=== PATIENT | female | born 1965 | race Caucasian/White ===

== ENCOUNTER → 2018-03-09 17:09 | Outpatient (CLI) | payer OTHER, SELFPAY ==
[2018-03-09 19:15] LABS: Bacteria Urine None Seen; RBC Urine None Seen (0-5/HPF); WBC Urine None Seen (0-5/HPF)
[2018-03-09 19:19] LABS: Appearance Urine UA CLEAR; Bilirubin Urine UA NEGATIVE (NEGATIVE); Color Urine UA YELLOW; Glucose Urine UA NEGATIVE (Normal); Ketones Urine UA NEGATIVE (NEGATIVE); Leukocyte Esterase Urine UA NEGATIVE (NEGATIVE); Nitrite Urine UA Negative (Negative); Occult Blood Urine UA TRACE-LYSED (Negative); Protein Urine UA NEGATIVE (Negative); Urobilinogen Urine UA 0.2 E.U./dL (0.2)
[2018-03-09 19:27] LABS: Culture Indicated Urine Cult Not Indicated; Urine Comments Microscopic Normal
== END ==
PROVIDERS: Family Provider Family Medicine; PCP Family Medicine; Visit Provider Family Medicine
DX: N39.0 Urinary tract infection, site not specified (principal)
CPT/HCPCS: 81001

== ENCOUNTER → 2018-03-14 08:05 | Outpatient (CLI) | payer OTHER, SELFPAY ==
[2018-03-14 09:47] LABS: Add Manual Diff / Slide Review NO; Basophils Percent Auto 1.1 % (0-2); Eosinophils Percent Auto 0.9 % (2-4); Hematocrit 41.4 % (36-46); Lymphocytes Percent Auto 36.3 % (25-40); Mean Corpuscular HGB Conc 33.7 % (30-36); Mean Corpuscular Hemoglobin 30.6 PG (26-34); Mean Corpuscular Volume 90.8 fL (80-100); Monocytes Percent Auto 4.7 % (3-14); Neutrophils Absolute Auto 3300 /uL (3000-5900); Platelet Count 241 X10^3/uL (150-400); Red Blood Cell Count 4.56 X10^6/uL (4.0-5.2); Red Cell Distribution Width 12.1 % (11.6-14.8); White Blood Cell Count 5.9 X10^3/uL (4.5-11.0)
[2018-03-14 09:57] LABS: Alanine Aminotransferase 27 IU/L (9-52); Albumin 4.2 g/dL (3.5-5.0); Albumin Globulin Ratio 1.4 (1.0-2.8); Alkaline Phosphatase 31 U/L (38-126); Aspartate Aminotransferase 24 IU/L (14-36); BUN Creatinine Ratio 18.6 (6-22); Bilirubin Total 0.6 mg/dL (0.2-1.3); Blood Urea Nitrogen 13 mg/dL (7-17); Carbon Dioxide 31 mmol/L (22-32); Chloride 103 mmol/L (98-107); Cholesterol 230 mg/dL (140-199); Estimated Glomerular Filt Rate > 60.0 mL/min (>60); Globulin 3.1 g/dL (1.7-4.1); Glucose 90 mg/dL (70-100); HDL Cholesterol 73 mg/dL (40-60); HEMOLYSIS < 15 (0-50); LDL Cholesterol Calculated 145 mg/dL (<100); Potassium 4.5 mmol/L (3.4-5.1); Sodium 141 mmol/L (137-145); Total Protein 7.3 g/dL (6.3-8.2); Triglycerides 61 mg/dL (35-150)
[2018-03-14 10:09] LABS: Free T4, Direct Thyroxine 0.94 ng/dL (0.78-2.19)
[2018-03-14 10:23] LABS: Thyroid Stimulating Hormone 0.69 uIU/mL (0.47-4.68)
== END ==
PROVIDERS: Family Provider Family Medicine; PCP Family Medicine; Visit Provider Family Medicine
DX: R53.82 Chronic fatigue, unspecified (principal); E78.00 Pure hypercholesterolemia, unspecified
CPT/HCPCS: 36415; 80053; 80061; 84439; 84443; 85025

== ENCOUNTER 2019-10-14 10:29 | Emergency (ER) | payer OTHER, SELFPAY ==
[2019-10-14 10:47] VITALS: BMI 23.6
[2019-10-14 11:00] VITALS: BP 102/58; PULSE 63; RESP 15; TEMP 36.5; O2SAT 97
--- NOTE | 2019-10-14 11:01 | PC.NURSE ---
pt reports, dry coughing for 10 days, now with left chest dull pain when taking breathing. at rest pain free with no other associated sxs.
--- NOTE | 2019-10-14 11:02 | DI.RAD.S_ITS ---
PROCEDURE: XR CHEST 2V INDICATIONS: shortness of breath TECHNIQUE: 2 views of the chest were acquired. COMPARISON: None. FINDINGS: Surgical changes and devices: None. Lungs and pleura: Lungs are clear. No pleural effusions or pneumothorax. Mediastinum: Mediastinal contours are normal. Heart size is normal. Bones and chest wall: No suspicious bony abnormalities. Soft tissues appear unremarkable. IMPRESSION: No acute cardiopulmonary pathology. Dictated by: Ben Jacobo M.D. on 10/14/2019 at 11:40 Approved by: Ben Jacobo M.D. on 10/14/2019 at 12:00
[2019-10-14 11:08] LABS: Add Manual Diff / Slide Review NO; Basophils Absolute Auto 0 /uL (0-100); Basophils Percent Auto 0.7 % (0-2); Eosinophils Absolute Auto 100 /uL (0-450); Eosinophils Percent Auto 0.9 % (2-4); Hematocrit 39.4 % (36-46); Hemoglobin 13.3 g/dL (12.0-16.0); Lymphocytes Absolute Auto 1500 /uL (1100-4500); Lymphocytes Percent Auto 21.4 % (25-40); Mean Corpuscular HGB Conc 33.8 % (30-36); Mean Corpuscular Hemoglobin 30.9 PG (26-34); Mean Corpuscular Volume 91.3 fL (80-100); Monocytes Absolute Auto 300 /uL (0-900); Monocytes Percent Auto 4.8 % (3-14); Neutrophils Absolute Auto 5100 /uL (1500-7000); Neutrophils Percent Auto 72.2 % (50-75); Platelet Count 235 X10^3/uL (150-400); Red Blood Cell Count 4.32 X10^6/uL (4.0-5.2); Red Cell Distribution Width 12.5 % (11.6-14.8)
[2019-10-14 11:13] LABS: Alanine Aminotransferase 17 IU/L (<35); Albumin 4.3 g/dL (3.5-5.0); Albumin Globulin Ratio 1.4 (1.0-2.8); Alkaline Phosphatase 34 U/L (38-126); Aspartate Aminotransferase 24 IU/L (14-36); Bilirubin Total 0.6 mg/dL (0.2-1.3); Blood Urea Nitrogen 12 mg/dL (7-17); Calcium 9.1 mg/dL (8.4-10.2); Carbon Dioxide 31 mmol/L (22-32); Chloride 101 mmol/L (98-107); Estimated Glomerular Filt Rate > 60.0 mL/min (>60); Glucose 97 mg/dL (70-100); HEMOLYSIS < 15 (0-50); Potassium 4.6 mmol/L (3.4-5.1); Sodium 138 mmol/L (137-145); Total Protein 7.3 g/dL (6.3-8.2)
--- NOTE | 2019-10-14 11:42 | ED_ITS ---
HPI - Chest Pain <Liv Flores PA-C - Last Filed: 10/14/19 20:43> General Chief Complaint: Chest Pain Stated Complaint: dry cough 10 days 24 hours gotten worse chest hurt Time Seen by Provider: 10/14/19 10:52 Source: patient Mode of arrival: Ambulatory Limitations: no limitations History of Present Illness HPI narrative: This 51-year-old female comes to ED secondary to worsening chest pain and discomfort. States that she was unable to see primary care provider today and thought she should have this checked out. She states that she has had a dry cough for 10 days, cough is worse today. She has also had some central pain in her chest especially with trying to take deep breaths or coughing. She states she feels like her breathing is a little bit labored due to this and she has chest fullness and pressure which are new since yesterday. She states that aside from the dry cough, she has not felt ill with any cold or upper respiratory symptoms. She has not had wheeze. She has not had fever. 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 She denies any radiation of the pain, better when not coughing and breathing normally. She denies any new pain or swelling in her extremities. She denies any history of cardiac disease, blood clots, asthma. She denies any recent surgery or immobility. Related Data Home Medications Medication Instructions Recorded Confirmed alprazolam 0.25 mg PO BEDTIME 10/14/19 10/14/19 temazepam 30 mg PO BEDTIME 10/14/19 10/14/19 Previous Rx's Medication Instructions Recorded [estrogen/progesteron] 1 cap PO QDAY #90 05/20/17 albuterol sulfate 2 inhalation INHALATION Q4H PRN 10/14/19 #8.5 gram Allergies Allergy/AdvReac Type Severity Reaction Status Date / Time No Known Drug Allergies Allergy Verified 10/14/19 10:47 Review of Systems <Liv Flores PA-C - Last Filed: 10/14/19 20:43> Review of Systems ROS Unobtainable: All systems reviewed & are unremarkable except as noted in HPI and below Patient History <Liv Flores PA-C - Last Filed: 10/14/19 20:43> Medical History Anxiety (Chronic 09/25/15) Anxiety (Chronic 1999) Depression (Chronic Unknown) Endometriosis (Resolved Unknown) Fatigue (Chronic) Fibroids (Resolved Unknown) H/O tinnitus (Chronic Unknown) Herpes (Chronic 2000) History of subacute thyroiditis (Chronic 05/27/16) 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 HEENT: Bri[place], EOMI, normal oropharynx NECK/THYROID: Neck supple, no masses LUNGS: Clear to auscultation bilaterally. CHEST: Tender over the sternum and sternal borders, no tenderness over the ribs HEART: Regular rate and rhythm without murmur, normal S1, S2, no S3 or S4. ABDOMEN: Soft, NT, ND, + BS x 4 quadrants EXTREMITIES: No edema. No calf tenderness NEUROLOGIC: Alert and oriented, normal speech and coordination. DERMATOLOGIC: No exanthem Initial Vital Signs Initial Vital Signs: Vital Signs Temperature 97.7 F 10/14/19 11:00 Pulse Rate 63 10/14/19 11:00 Respiratory Rate 15 10/14/19 11:00 Blood Pressure 102/58 L 10/14/19 11:00 Pulse Oximetry 97 10/14/19 11:00 <Doretha Posadas MD - Last Filed: 10/18/19 12:18> Initial Vital Signs Initial Vital Signs: Vital Signs Temperature 97.7 F 10/14/19 11:00 Pulse Rate 63 10/14/19 11:00 Respiratory Rate 15 10/14/19 11:00 Blood Pressure 102/58 L 10/14/19 11:00 Pulse Oximetry 97 10/14/19 11:00 Scores <Liv Flores PA-C - Last Filed: 10/14/19 20:43> HEART Score Heart Score history: Slightly Suspicious Heart Score EKG: Normal Heart Score Age: 45-64 years old Heart Score risk factors: No known risk factors Heart Score troponin: < or = to normal limit Heart Score Total: 1 Wells' Criteria for PE Heart rate > 100: No Immobilization at least 3 days or surg in previous 4 weeks: No History of PE or DVT: No Hemoptysis: No Malignancy w/Treatment within 6 months or palliative: No Course <Liv Flores PA-C - Last Filed: 10/14/19 20:43> Course Additional Information: No acute findings on workup. Patient does have some pure hypercholesterolemia, but no specific risk factors aside from age, no history of immobilization or risk factors for clots. She is feeling improved following nebulizer treatment, suspect reactive airways secondary to recent bronchitis. She agreed to return if any acutely worsening symptoms again, otherwise will follow-up with PCP. Orders Ordered: Discontinued Medications Albuterol (Ventolin) 2.5 mg INH NOW ONE Stop: 10/14/19 11:57 Last Admin: 10/14/19 12:15 Dose: 2.5 mg Documented by: TEOFILO Vital Signs Vital signs: Vital Signs - 8 hr 10/14/19 13:00 10/14/19 13:37 Pulse Rate 62 63 Respiratory Rate 17 17 Blood Pressure 116/64 Pulse Oximetry 98 <Doretha Posadas MD - Last Filed: 10/18/19 12:18> Orders Ordered: Discontinued Medications Albuterol (Ventolin) 2.5 mg INH NOW ONE Stop: 10/14/19 11:57 Last Admin: 10/14/19 12:15 Dose: 2.5 mg Documented by: TEOFILO Vital Signs Vital signs: Vital Signs - 8 hr 10/14/19 13:00 10/14/19 13:37 Pulse Rate 62 63 Respiratory Rate 17 17 Blood Pressure 116/64 Pulse Oximetry 98 MDM - Chest Pain <Liv Flores PA-C - Last Filed: 10/14/19 20:43> Lab Data Attestation: I reviewed the patient's lab results. Result diagrams: 10/14/19 10:50 10/14/19 10:50 Labs: Lab Results 10/14/19 10/14/19 10/14/19 Range/Units 10:50 10:50 10:50 WBC 7.0 (4.5-11.0) X10^3/uL RBC 4.32 (4.0-5.2) X10^6/uL Hgb 13.3 (12.0-16.0) g/dL Hct 39.4 (36-46) % MCV 91.3 (80-100) fL MCH 30.9 (26-34) PG MCHC 33.8 (30-36) % RDW 12.5 (11.6-14.8) % Plt Count 235 (150-400) X10^3/uL Neut % (Auto) 72.2 (50-75) % Lymph % (Auto) 21.4 L (25-40) % [place] % (Auto) 4.8 (3-14) % Eos % (Auto) 0.9 L (2-4) % Baso % (Auto) 0.7 (0-2) % Neut # (Auto) 5100 (3368-7842) /uL Lymph # (Auto) 1500 (0623-1607) /uL [place] # (Auto) 300 (0-900) /uL Eos # (Auto) 100 (0-450) /uL Baso # (Auto) 0 (0-100) /uL D-Dimer (<230) ng/mL Sodium 138 (137-145) mmol/L Potassium 4.6 (3.4-5.1) mmol/L Chloride 101 (98-107) mmol/L Carbon Dioxide 31 (22-32) mmol/L BUN 12 (7-17) mg/dL Creatinine 0.60 (0.52-1.04) mg/dL Estimated GFR > 60.0 (>60) mL/min BUN/Creatinine Ratio 20.0 (6-22) Glucose 97 (70-100) mg/dL Calcium 9.1 (8.4-10.2) mg/dL Total Bilirubin 0.6 (0.2-1.3) mg/dL AST 24 (14-36) IU/L ALT 17 (<35) IU/L Alkaline Phosphatase 34 L (38-126) U/L Total Creatine Kinase 51 (30-135) U/L CK-MB (CK-2) TNP CK-MB (CK-2) Rel Index TNP Troponin I < 0.012 (0.01-0.034) ng/mL B-Natriuretic Peptide (<100) Total Protein 7.3 (6.3-8.2) g/dL Albumin 4.3 (3.5-5.0) g/dL Globulin 3.0 (1.7-4.1) g/dL Albumin/Globulin Ratio 1.4 (1.0-2.8) 10/14/19 10/14/19 Range/Units 10:50 10:50 WBC (4.5-11.0) X10^3/uL RBC (4.0-5.2) X10^6/uL Hgb (12.0-16.0) g/dL Hct (36-46) % MCV (80-100) fL MCH (26-34) PG MCHC (30-36) % RDW (11.6-14.8) % Plt Count (150-400) X10^3/uL Neut % (Auto) (50-75) % Lymph % (Auto) (25-40) % [place] % (Auto) (3-14) % Eos % (Auto) (2-4) % Baso % (Auto) (0-2) % Neut # (Auto) (4099-7421) /uL Lymph # (Auto) (8155-0953) /uL [place] # (Auto) (0-900) /uL Eos # (Auto) (0-450) /uL Baso # (Auto) (0-100) /uL D-Dimer < 200 (<230) ng/mL Sodium (137-145) mmol/L Potassium (3.4-5.1) mmol/L Chloride (98-107) mmol/L Carbon Dioxide (22-32) mmol/L BUN (7-17) mg/dL Creatinine (0.52-1.04) mg/dL Estimated GFR (>60) mL/min BUN/Creatinine Ratio (6-22) Glucose (70-100) mg/dL Calcium (8.4-10.2) mg/dL Total Bilirubin (0.2-1.3) mg/dL AST (14-36) IU/L ALT (<35) IU/L Alkaline Phosphatase (38-126) U/L Total Creatine Kinase (30-135) U/L CK-MB (CK-2) CK-MB (CK-2) Rel Index Troponin I (0.01-0.034) ng/mL B-Natriuretic Peptide < 100 (<100) Total Protein (6.3-8.2) g/dL Albumin (3.5-5.0) g/dL Globulin (1.7-4.1) g/dL Albumin/Globulin Ratio (1.0-2.8) Imaging Data Chest x-ray: Radiologist's Impression: [address] [address] XRay Report Signed Patient: Darleen Erickson [facility]#: [id number] : 1965Acct:[id number] Age/Sex: 54 / FDate of Service: 10/14/19 Loc: ED Accession Number: [id number] Procedure: XR chest 2V Ordering Provider: Doretha Posadas MD PROCEDURE: XR CHEST 2V INDICATIONS: shortness of breath TECHNIQUE: 2 views of the chest were acquired. COMPARISON: None. FINDINGS: Surgical changes and devices: None. Lungs and pleura: Lungs are clear. No pleural effusions or pneumothorax. Mediastinum: Mediastinal contours are normal. Heart size is normal. Bones and chest wall: No suspicious bony abnormalities. Soft tissues appear unremarkable. IMPRESSION: No acute cardiopulmonary pathology. Dictated by: Ben Jacobo M.D. on 10/14/2019 at 11:40 Approved by: Ben Jacobo M.D. on 10/14/2019 at 12:00 ECG Data Attestation: I personally reviewed and interpreted this ECG as follows: (Normal sinus rhythm, rate 60, normal axis) <Doretha Posadas MD - Last Filed: 10/18/19 12:18> Lab Data Labs: Lab Results 10/14/19 10/14/19 10/14/19 Range/Units 10:50 10:50 10:50 WBC 7.0 (4.5-11.0) X10^3/uL RBC 4.32 (4.0-5.2) X10^6/uL Hgb 13.3 (12.0-16.0) g/dL Hct 39.4 (36-46) % MCV 91.3 (80-100) fL MCH 30.9 (26-34) PG MCHC 33.8 (30-36) % RDW 12.5 (11.6-14.8) % Plt Count 235 (150-400) X10^3/uL Neut % (Auto) 72.2 (50-75) % Lymph % (Auto) 21.4 L (25-40) % [place] % (Auto) 4.8 (3-14) % Eos % (Auto) 0.9 L (2-4) % Baso % (Auto) 0.7 (0-2) % Neut # (Auto) 5100 (0894-8540) /uL Lymph # (Auto) 1500 (3749-6180) /uL [place] # (Auto) 300 (0-900) /uL Eos # (Auto) 100 (0-450) /uL Baso # (Auto) 0 (0-100) /uL D-Dimer (<230) ng/mL Sodium 138 (137-145) mmol/L Potassium 4.6 (3.4-5.1) mmol/L Chloride 101 (98-107) mmol/L Carbon Dioxide 31 (22-32) mmol/L BUN 12 (7-17) mg/dL Creatinine 0.60 (0.52-1.04) mg/dL Estimated GFR > 60.0 (>60) mL/min BUN/Creatinine Ratio 20.0 (6-22) Glucose 97 (70-100) mg/dL Calcium 9.1 (8.4-10.2) mg/dL Total Bilirubin 0.6 (0.2-1.3) mg/dL AST 24 (14-36) IU/L ALT 17 (<35) IU/L Alkaline Phosphatase 34 L (38-126) U/L Total Creatine Kinase 51 (30-135) U/L CK-MB (CK-2) TNP CK-MB (CK-2) Rel Index TNP Troponin I < 0.012 (0.01-0.034) ng/mL B-Natriuretic Peptide (<100) Total Protein 7.3 (6.3-8.2) g/dL Albumin 4.3 (3.5-5.0) g/dL Globulin 3.0 (1.7-4.1) g/dL Albumin/Globulin Ratio 1.4 (1.0-2.8) 10/14/19 10/14/19 Range/Units 10:50 10:50 WBC (4.5-11.0) X10^3/uL RBC (4.0-5.2) X10^6/uL Hgb (12.0-16.0) g/dL Hct (36-46) % MCV (80-100) fL MCH (26-34) PG MCHC (30-36) % RDW (11.6-14.8) % Plt Count (150-400) X10^3/uL Neut % (Auto) (50-75) % Lymph % (Auto) (25-40) % [place] % (Auto) (3-14) % Eos % (Auto) (2-4) % Baso % (Auto) (0-2) % Neut # (Auto) (2624-8429) /uL Lymph # (Auto) (9090-9657) /uL [place] # (Auto) (0-900) /uL Eos # (Auto) (0-450) /uL Baso # (Auto) (0-100) /uL D-Dimer < 200 (<230) ng/mL Sodium (137-145) mmol/L Potassium (3.4-5.1) mmol/L Chloride (98-107) mmol/L Carbon Dioxide (22-32) mmol/L BUN (7-17) mg/dL Creatinine (0.52-1.04) mg/dL Estimated GFR (>60) mL/min BUN/Creatinine Ratio (6-22) Glucose (70-100) mg/dL Calcium (8.4-10.2) mg/dL Total Bilirubin (0.2-1.3) mg/dL AST (14-36) IU/L ALT (<35) IU/L Alkaline Phosphatase (38-126) U/L Total Creatine Kinase (30-135) U/L CK-MB (CK-2) CK-MB (CK-2) Rel Index Troponin I (0.01-0.034) ng/mL B-Natriuretic Peptide < 100 (<100) Total Protein (6.3-8.2) g/dL Albumin (3.5-5.0) g/dL Globulin (1.7-4.1) g/dL Albumin/Globulin Ratio (1.0-2.8) Discharge Plan Departure Patient Disposition: Home Clinical Impression: Acute costochondritis, Bronchitis Mild reactive airways disease Qualifiers: Asthma persistence: intermittent Asthma complication type: with acute exacerbation Qualified Code(s): J45.21 - Mild intermittent asthma with (acute) exacerbation Discharge Date/Time: 10/14/19 13:37 Instructions: DI for Acute Bronchitis, DI for Costochondritis, DI for Reactive Airway Disease-Adult Activity Restrictions/Additional Instructions: There was no acute problem found on your chest x-ray, EKG, or the lab work that we did here today. I suspect that your cough is related to a viral chest cold, bronchitis. This will likely get better on its own over the next week or so, however it seems like you may have some reactive airways, airway inflammation related to the virus that may be exacerbating your cough and tight chest, especially since the breathing treatment that we gave you helped. Please use the prescribed inhaler for that as needed and you can use [id number] cough syrup as you wish. The prescription was sent to [facility]. Please start taking Aleve, 2 tablets every 12 hours, which is prescription equivalent, to help with pain and inflammation. I think that you have strained the area where your ribs attach to the breast bone due to coughing so much. As we talked about, you should return if you have any acutely worsening symptoms prior to seeing her primary care provider. Please see your PCP in a few days for recheck and further treatment and testing if you are not better. Thank you very much for your service (and for your patience in our busy Emergency Department today) Prescriptions: New albuterol sulfate 90 mcg/actuation HFA aerosol inhaler 2 inhalation INHALATION Q4H PRN (Reason: cough, tight chest) Qty: 8.5 RF: 0 No Action [estrogen/progesteron] 1 cap PO QDAY Qty: 90 RF: 3 alprazolam 0.25 mg tablet 0.25 mg PO BEDTIME RF: 0 temazepam 30 MG capsule 30 mg PO BEDTIME RF: 0 Referrals: [facility] [Outside]
[2019-10-14 12:07] LABS: D Dimer < 200 ng/mL (<230)
[2019-10-14 12:09] LABS: Creatine Kinase 51 U/L (30-135)
[2019-10-14 12:15] VITALS: PULSE 89; RESP 14; O2SAT 100
[2019-10-14] MEDS: ALBUTEROL 2.5 MG/3 ML NEB (ADULT) INH (12:15)
[2019-10-14 12:17] LABS: B Type Natriuretic Peptide < 100 (<100)
[2019-10-14 12:21] LABS: Troponin I < 0.012 ng/mL (0.01-0.034)
[2019-10-14 12:36] VITALS: PULSE 62; RESP 17; O2SAT 100
[2019-10-14 13:00] VITALS: PULSE 62; RESP 17
[2019-10-14 13:37] VITALS: BP 116/64; PULSE 63; RESP 17; O2SAT 98
== END 2019-10-14 13:37 | disposition home or self-care (01) ==
PROVIDERS: Emergency Medicine; Emergency Provider Internal Medicine; PCP Family Medicine
DX: M94.0 Chondrocostal junction syndrome [Tietze] (principal); J40 Bronchitis, not specified as acute or chronic; J45.21 Mild intermittent asthma with (acute) exacerbation
CPT/HCPCS: 36415; 71046; 80053; 82550; 83880; 84484; 85025; 85379; 93005; 94640; 99284; 99285; J7613

== ENCOUNTER → 2021-06-20 17:03 | Outpatient (CLI) | payer OTHER, SELFPAY ==
--- NOTE | 2021-06-20 17:06 | DI.US.S_ITS ---
PROCEDURE: US THYROID INDICATIONS: ROUTINE SCREENING; THYROID NODULE TECHNIQUE: Real-time scanning was performed of the thyroid gland, with image documentation. COMPARISON: None. FINDINGS: Right: Thyroid lobe measures 4.4 x 1.3 x 1.4 cm, and is homogeneous in echotexture. Left: Thyroid lobe measures 4 x 1.2 x 1.4 cm, and is homogenous in echotexture. Isthmus: 2.4 mm thick. Nodule number: 1 Location: Mid pole of left thyroid lobe Size: 1.2 x 0.7 x 0.8 cm. Composition: Solid Echogenicity: Hypoechoic Shape: Wider than tall Margins: Smooth Echogenic foci: None Total points: 4 ACR TI-RADS category: 4, moderately suspicious. Nodule number: 2 Location: Lower pole of left thyroid lobe Size: 0.2 x 0.2 x 0.3 cm. Composition: Solid Echogenicity: Hypoechoic Shape: Wider than tall Margins: Smooth Echogenic foci: None Total points: 4 ACR TI-RADS category: 4, moderately suspicious. Nodule number: 3 Location: Lower pole right thyroid lobe Size: 0.6 x 0.3 x 0.6 cm. Composition: Solid Echogenicity: Isoechoic Shape: Wider than tall Margins: Smooth Echogenic foci: None Total points: 3 ACR TI-RADS category: 3, mildly suspicious. IMPRESSION: Small mild to moderately suspicious bilateral thyroid nodules as described above. Sonographic follow-up based on following recommendation is suggested. ACR TI-RADS definitions and recommendations: TI-RADS 1 (benign): 0 points. FNA not needed. TI-RADS 2 (not suspicious): 2 points. FNA not needed. TI-RADS 3 (mildly suspicious): 3 points. * FNA if 2.5 cm or larger, follow up if 1.5 cm or larger (at 1, 3, and 5 years). TI-RADS 4 (moderately suspicious): 4-6 points. * FNA if 1.5 cm or larger, follow up if 1 cm or larger (at 1, 2, 3, and 5 years). TI-RADS 5 (highly suspicious): 7 points or more. * FNA if 1 cm or larger, follow up if 0.5 cm or larger (every year for 5 years). Dictated by: Ben Jacobo M.D. on 06/20/2021 at 23:53 Approved by: Ben Jacobo M.D. on 06/20/2021 at 23:56
--- NOTE | 2021-06-20 17:06 | DI.MG.S_ITS ---
BILATERAL DIGITAL SCREENING MAMMOGRAM 3D/2D WITH CAD WITH AUGMENTATION: 06/20/2021 CLINICAL: Routine screening. Comparison is made to exams dated: 04/13/2020 mammogram, 03/29/2019 mammogram, and 02/13/2018 mammogram - [facility]. The tissue of both breasts is heterogeneously dense. This may lower the sensitivity of mammography. Current study was also evaluated with a Computer Aided Detection (CAD) system. Bilateral breast implants are stable. There are benign calcifications in the left breast. No significant masses, calcifications, or other findings are seen in either breast. There has been no significant interval change. IMPRESSION: BENIGN There is no mammographic evidence of malignancy. A 1 year screening mammogram is recommended. This exam was interpreted at Station ID: [id number]. NOTE: For mammograms, a report in lay terms will be sent to the patient. Approximately 15% of breast malignancies will not be visualized mammographically. In the management of a palpable breast mass, a negative mammogram must not discourage biopsy of a clinically suspicious lesion. Electronically Signed By: Sandeep chavez/murray:06/21/2021 12:01:01 letter sent: Normal Exam ACR BI-RADS Category 2: Benign Finding(s) [id number]
== END ==
PROVIDERS: PCP Physician Assistant; Referring Provider Physician Assistant; Visit Provider Physician Assistant
DX: Z12.31 Encounter for screening mammogram for malignant neoplasm of breast (principal); E04.2 Nontoxic multinodular goiter
CPT/HCPCS: 76536; 77063; 77067

== ENCOUNTER → 2021-07-25 12:06 | Outpatient (CLI) | payer BC, SELFPAY | PROVIDERS: PCP Physician Assistant; Visit Provider Nurse Practitioner Family | DX: R30.9 Painful micturition, unspecified (principal) | CPT/HCPCS: 87077; 87086; 87186 ==

== ENCOUNTER → 2021-10-04 15:19 | Outpatient (CLI) | payer BC, SELFPAY ==
[2021-10-04 16:39] LABS: Free T4, Direct Thyroxine 0.99 ng/dL (0.78-2.19)
[2021-10-04 16:53] LABS: Thyroid Stimulating Hormone 0.128 uIU/mL (0.47-4.68)
[2021-10-05 06:17] LABS: Triiodothyronine T3 Total 106 ng/dL (71-180)
== END ==
PROVIDERS: PCP Physician Assistant; Referring Provider Physician Assistant; Visit Provider Physician Assistant
DX: E03.9 Hypothyroidism, unspecified (principal)
CPT/HCPCS: 36415; 84439; 84443; 84480

== ENCOUNTER → 2021-11-16 12:06 | Outpatient (CLI) | payer BC, SELFPAY ==
[2021-11-16 13:56] LABS: Free T4, Direct Thyroxine 1.24 ng/dL (0.78-2.19)
[2021-11-16 14:10] LABS: Thyroid Stimulating Hormone 0.344 uIU/mL (0.47-4.68)
[2021-11-17 08:35] LABS: Triiodothyronine T3 Total 104 ng/dL (71-180)
== END ==
PROVIDERS: PCP Physician Assistant; Referring Provider Physician Assistant; Visit Provider Physician Assistant
DX: E03.9 Hypothyroidism, unspecified (principal)
CPT/HCPCS: 36415; 84439; 84443; 84480

== ENCOUNTER → 2021-12-12 14:04 | Outpatient (CLI) | payer BC, SELFPAY ==
[2021-12-12 16:56] LABS: TSH w/ Reflex to FT4 0.19 uIU/mL (0.47-4.68)
[2021-12-12 17:24] LABS: Free T4, Direct Thyroxine 1.15 ng/dL (0.78-2.19)
== END ==
PROVIDERS: PCP Physician Assistant; Referring Provider Physician Assistant; Visit Provider Physician Assistant
DX: E03.9 Hypothyroidism, unspecified (principal)
CPT/HCPCS: 36415; 84439; 84443

== ENCOUNTER → 2022-01-03 11:43 | Outpatient (CLI) | payer BC, SELFPAY ==
[2022-01-03 12:30] LABS: COVID19 -Nasal RAPID Negative (Negative)
== END ==
PROVIDERS: PCP Physician Assistant; Visit Provider Physician Assistant
DX: Z20.822 Contact with and (suspected) exposure to COVID-19 (principal)
CPT/HCPCS: 87635

== ENCOUNTER → 2022-05-22 12:38 | Outpatient (CLI) | payer BC, SELFPAY ==
[2022-05-22 14:39] LABS: Free T4, Direct Thyroxine 1.12 ng/dL (0.78-2.19)
[2022-05-22 14:52] LABS: Thyroid Stimulating Hormone 0.514 uIU/mL (0.47-4.68)
== END ==
PROVIDERS: PCP Internal Medicine; Referring Provider Student in an Organized Health Care Education/Training Program; Visit Provider Student in an Organized Health Care Education/Training Program
DX: E03.9 Hypothyroidism, unspecified (principal)
CPT/HCPCS: 36415; 84439; 84443

== ENCOUNTER → 2022-06-24 11:25 | Outpatient (CLI) | payer BC, SELFPAY ==
[2022-06-24 13:47] LABS: Free T4, Direct Thyroxine 1.14 ng/dL (0.78-2.19)
[2022-06-24 14:01] LABS: Thyroid Stimulating Hormone 0.551 uIU/mL (0.47-4.68)
== END ==
PROVIDERS: PCP Internal Medicine; Referring Provider Student in an Organized Health Care Education/Training Program; Visit Provider Student in an Organized Health Care Education/Training Program
DX: E03.9 Hypothyroidism, unspecified (principal)
CPT/HCPCS: 36415; 84439; 84443

== ENCOUNTER → 2022-06-26 15:24 | Outpatient (CLI) | payer BC, SELFPAY ==
--- NOTE | 2022-06-26 15:25 | DI.MG.S_ITS ---
BILATERAL DIGITAL SCREENING MAMMOGRAM 3D/2D WITH CAD WITH AUGMENTATION: 06/26/2022 CLINICAL: Routine screening. Comparison is made to exams dated: 06/20/2021 mammogram - [facility], 04/13/2020 mammogram, and 03/29/2019 mammogram - [facility]. Both breasts are heterogeneously dense, which may obscure small masses (category c / 51-75% glandular tissue). Current study was also evaluated with a Computer Aided Detection (CAD) system. Bilateral breast implants are stable. There are benign calcifications in the left breast. No significant masses, calcifications, or other findings are seen in either breast. There has been no significant interval change. IMPRESSION: BENIGN There is no mammographic evidence of malignancy. A 1 year screening mammogram is recommended. Based on the Tyrer Cuzick model (a risk assessment model) the patient's lifetime risk is 11.4% and her 10 year risk is 4.0%. According to the ACR, ACS, and NCCN guidelines, an annual breast MRI exam along with mammogram is recommended if the patient's lifetime risk is 20% or greater. This exam was interpreted at Station ID: [id number]. NOTE: For mammograms, a report in lay terms will be sent to the patient. Approximately 15% of breast malignancies will not be visualized mammographically. In the management of a palpable breast mass, a negative mammogram must not discourage biopsy of a clinically suspicious lesion. Electronically Signed By: Salty garcia/murray:06/27/2022 08:41:42 letter sent: Normal Exam ACR BI-RADS Category 2: Benign Finding(s) 3342F
== END ==
PROVIDERS: PCP Internal Medicine; Referring Provider Internal Medicine; Visit Provider Internal Medicine
DX: Z12.31 Encounter for screening mammogram for malignant neoplasm of breast (principal)
CPT/HCPCS: 77063; 77067

== ENCOUNTER → 2022-10-03 14:23 | Outpatient (CLI) | payer BC, SELFPAY ==
--- NOTE | 2022-10-03 14:26 | DI.RAD.S_ITS ---
PROCEDURE: XR HIP W PEL IF DONE CHRIS MIN 4V INDICATIONS: HIP PAIN TECHNIQUE: AP pelvis with lateral view(s) of the both hip(s). COMPARISON: None. FINDINGS: Bones: No fractures or dislocations. No a vascular necrosis of the femoral heads. Mild degenerative change at both hips which is symmetric. Pelvic ring appears intact. No suspicious bony lesions. Soft tissues: The visualized bowel gas pattern is normal. No suspicious soft tissue calcifications. IMPRESSION: Mild bilateral hip DJD. Dictated by: Tom Strickland M.D. on 10/03/2022 at 16:12 Approved by: Tom Strickland M.D. on 10/03/2022 at 16:13
== END ==
PROVIDERS: PCP Internal Medicine; Referring Provider Physician Assistant; Visit Provider Physician Assistant
DX: M25.551 Pain in right hip (principal); M25.552 Pain in left hip; M16.0 Bilateral primary osteoarthritis of hip
CPT/HCPCS: 73522

== ENCOUNTER → 2022-11-21 07:57 | Outpatient (CLI) | payer BC, SELFPAY ==
[2022-11-21 10:44] LABS: Free T3, Triiodothyronine Free 3.93 pg/mL (2.77-5.27); Free T4, Direct Thyroxine 0.94 ng/dL (0.78-2.19)
[2022-11-21 10:59] LABS: Thyroid Stimulating Hormone 1.17 uIU/mL (0.47-4.68)
[2022-11-22 07:10] LABS: Thyroid Peroxidase Antibodies <9 IU/mL (0-34)
[2022-11-23 14:51] LABS: Anti Thyroglobulin Antibody <1.0 IU/mL (0.0-0.9)
[2022-12-01 19:37] LABS: Thyroglobulin Level 16 ng/mL (.)
== END ==
PROVIDERS: PCP Internal Medicine; Referring Provider Naturopath; Visit Provider Naturopath
DX: R94.6 Abnormal results of thyroid function studies (principal)
CPT/HCPCS: 36415; 84432; 84439; 84443; 84481; 86376; 86800

== ENCOUNTER → 2022-12-31 07:32 | Outpatient (CLI) | payer BC, SELFPAY | PROVIDERS: PCP Internal Medicine; Visit Provider Physician Assistant | DX: N39.0 Urinary tract infection, site not specified (principal) | CPT/HCPCS: 87077; 87086; 87186 ==

== ENCOUNTER → 2023-01-22 11:22 | Outpatient (CLI) | payer BC, SELFPAY ==
[2023-01-22 11:53] LABS: Add Manual Diff / Slide Review NO; Basophils Absolute Auto 100 /uL (0-100); Basophils Percent Auto 1.2 % (0-2); Eosinophils Absolute Auto 100 /uL (0-450); Hemoglobin 13.8 g/dL (12.0-16.0); Lymphocytes Absolute Auto 2500 /uL (1100-4500); Lymphocytes Percent Auto 41.3 % (25-40); Mean Corpuscular HGB Conc 33.6 % (30-36); Mean Corpuscular Hemoglobin 30.5 PG (26-34); Mean Corpuscular Volume 90.9 fL (80-100); Monocytes Absolute Auto 300 /uL (0-900); Monocytes Percent Auto 4.6 % (3-14); Neutrophils Absolute Auto 3100 /uL (1500-7000); Neutrophils Percent Auto 51.9 % (50-75); Platelet Count 254 X10^3/uL (150-400); Red Blood Cell Count 4.52 X10^6/uL (4.0-5.2); Red Cell Distribution Width 12.6 % (11.6-14.8); White Blood Cell Count 5.9 X10^3/uL (4.5-11.0)
[2023-01-22 13:28] LABS: Ferritin 20 ng/mL (11-264)
== END ==
PROVIDERS: PCP Internal Medicine; Referring Provider Naturopath; Visit Provider Naturopath
DX: D50.9 Iron deficiency anemia, unspecified (principal); R53.83 Other fatigue
CPT/HCPCS: 36415; 82728; 84443; 85025

== ENCOUNTER → 2023-02-25 11:11 | Outpatient (CLI) | payer BC, SELFPAY ==
--- NOTE | 2023-02-25 11:12 | DI.CT.S_ITS ---
PROCEDURE: CT ABDOMEN PELVIS WO/W CON INDICATIONS: Gross hematuria/secondhand smoke exposure TECHNIQUE: Optional 5 mm thick noncontrast images acquired from the diaphragm to the symphysis pubis. After the administration of intravenous contrast, 5 mm thick images acquired from the diaphragm to the symphysis pubis after a 10-minute delay. 2 mm thick coronal and sagittal reformats were then performed of the kidneys and ureters. For radiation dose reduction, the following was used: automated exposure control, adjustment of mA and/or kV according to patient size. COMPARISON: None. FINDINGS: Image quality: Excellent. Lung bases: Lung bases are clear. Heart size is normal. Urinary system: Both kidneys are normal in size, without hydronephrosis or nephrolithiasis on pre-contrast images. No perinephric fat stranding. There is normal bilateral renal enhancement. Renal calyces appear normal in morphology when filled with contrast. Opacified portions of both ureters demonstrate normal caliber. Bladder wall thickness is normal. No calcified bladder stones. Other solid organs: Liver is normal in size and enhancement. Gallbladder is unremarkable without calcified gallstones . Biliary system is non dilated. Pancreas enhances normally. Spleen is normal in size and enhancement. No adrenal nodules. Peritoneum and bowel: Bowel loops demonstrate normal wall thickness and caliber. No free fluid or air. Nodes and vessels: No retroperitoneal or mesenteric adenopathy by size criteria. Aorta and inferior vena cava are normal in size. Abdominal wall: No ventral hernias. Pelvis: No pathologic free pelvic fluid. No inguinal hernias or adenopathy. Bones: No suspicious bony lesions. No vertebral body compression fractures. IMPRESSION: 1. No renal stones, ureteral stones, hydronephrosis, or findings suspicious for malignancy. 2. No evidence of acute abdominal process. Dictated by: Kei Peters M.D. on 02/25/2023 at 17:17 Approved by: Kei Peters M.D. on 02/25/2023 at 17:26
[2023-02-25 13:44] LABS: Appearance Urine UA CLEAR; Bilirubin Urine UA NEGATIVE (NEGATIVE); Color Urine UA YELLOW; Glucose Urine UA NEGATIVE (Negative); Ketones Urine UA NEGATIVE (NEGATIVE); Leukocyte Esterase Urine UA NEGATIVE (NEGATIVE); Nitrite Urine UA NEGATIVE (Negative); Occult Blood Urine UA TRACE-INTACT (Negative); Protein Urine UA NEGATIVE (Negative); Specific Gravity Urine UA <=1.005 (1.000-1.035); Urobilinogen Urine UA 0.2 E.U./dL (0.2)
[2023-02-25 13:55] LABS: Bacteria Urine None Seen; Culture Indicated Urine Cult Not Indicated; RBC Urine None Seen (0-5/HPF); Squamous Epithelial Cell Urine 0-1 /HPF (0-5/HPF); WBC Urine None Seen (0-5/HPF)
== END ==
PROVIDERS: PCP Internal Medicine; Referring Provider Urology; Visit Provider Urology
DX: R31.0 Gross hematuria (principal); Z77.22 Contact with and (suspected) exposure to environmental tobacco smoke (acute) (chronic); N39.0 Urinary tract infection, site not specified; R39.14 Feeling of incomplete bladder emptying; R39.15 Urgency of urination
CPT/HCPCS: 36415; 74178; 81001; Q9967

== ENCOUNTER → 2023-03-24 10:39 | Outpatient (CLI) | payer BC, SELFPAY | PROVIDERS: PCP Internal Medicine; Visit Provider Nurse Practitioner Family | DX: N39.0 Urinary tract infection, site not specified (principal) | CPT/HCPCS: 87086 ==

== ENCOUNTER → 2023-07-23 14:01 | Outpatient (CLI) | payer OTHER, SELFPAY ==
--- NOTE | 2023-07-23 | DI.MG.S_ITS ---
BILATERAL DIGITAL SCREENING MAMMOGRAM 3D/2D WITH CAD WITH AUGMENTATION: 07/23/2023 CLINICAL: Routine screening. Comparison is made to exams dated: 06/26/2022 mammogram, 06/20/2021 mammogram - [facility], and 04/13/2020 mammogram - [facility]. Both breasts are heterogeneously dense, which may obscure small masses (category c / 51-75% glandular tissue). Current study was also evaluated with a Computer Aided Detection (CAD) system. Bilateral breast implants are stable. There are benign calcifications in the left breast. No significant masses, calcifications, or other findings are seen in either breast. There has been no significant interval change. IMPRESSION: BENIGN There is no mammographic evidence of malignancy. A 1 year screening mammogram is recommended. Based on the Tyrer Cuzick model (a risk assessment model) the patient's lifetime risk is 11.2% and her 10 year risk is 4.1%. According to the ACR, ACS, and NCCN guidelines, an annual breast MRI exam along with mammogram is recommended if the patient's lifetime risk is 20% or greater. This exam was interpreted at Station ID: [id number]. NOTE: For mammograms, a report in lay terms will be sent to the patient. Approximately 15% of breast malignancies will not be visualized mammographically. In the management of a palpable breast mass, a negative mammogram must not discourage biopsy of a clinically suspicious lesion. Electronically Signed By: Sandeep chavez/murray:07/23/2023 17:58:35 letter sent: Normal Exam ACR BI-RADS Category 2: Benign Finding(s) [id number]
== END ==
PROVIDERS: PCP Internal Medicine; Referring Provider Physician Assistant; Visit Provider Physician Assistant
DX: Z12.31 Encounter for screening mammogram for malignant neoplasm of breast (principal)
CPT/HCPCS: 77063; 77067

== ENCOUNTER → 2023-11-20 15:07 | Outpatient (CLI) | payer OTHER, SELFPAY ==
--- NOTE | 2023-11-20 | DI.US.S_ITS ---
PROCEDURE: US THYROID INDICATIONS: NONTOXIC SINGLE THYROID NODULE TECHNIQUE: Real-time scanning was performed of the thyroid gland, with image documentation. COMPARISON: [facility], US, US THYROID, 03/23/2018, 13:02. [facility] Ultrasound, US, US THYROID, 07/08/2019, 13:50. [facility], US, US THYROID, 06/20/2021, 17:25. FINDINGS: Right: Thyroid lobe measures 4.4 x 1.8 x 1.6 cm. Left: Thyroid lobe measures 4.2 x 1.4 x 1.5 cm. Isthmus: 0.4 cm thick. Nodule number: 1 Location: Left mid thyroid Size: 1.3 x 0.8 x 0.8 cm, prior 1.2 x 0.7 x 0.8 cm. In 2018, this measured 1 x 0.7 x 0.7 cm. Composition: Solid Echogenicity: Hypoechoic Shape: wider than tall. Margins: Smooth Echogenic foci: None. Total points: 4 ACR TI-RADS category: 4 Nodule number: 2 Location: Left inferior thyroid Size: 0.3 x 0.3 x 0.2 cm, prior 0.2 x 0.2 x 0.3 cm. Composition: Solid Echogenicity: Hypoechoic Shape: wider than tall. Margins: Smooth Echogenic foci: None. Total points: 4 ACR TI-RADS category: 4 Nodule number: 3 Location: Right inferior thyroid Size: 0.8 x 0.7 x 0.5 cm, prior 0.6 x 0.3 x 0.6 cm. Composition: Solid Echogenicity: Isoechoic Shape: wider than tall. Margins: Smooth Echogenic foci: None. Total points: 3 ACR TI-RADS category: 3 IMPRESSION: Stable bilateral thyroid nodules are seen. No specific imaging follow-up is recommended, given the appearance of the nodules and the stability over time. ACR TI-RADS definitions and recommendations: TI-RADS 1 (benign): 0 points. FNA not needed. TI-RADS 2 (not suspicious): 2 points. FNA not needed. TI-RADS 3 (mildly suspicious): 3 points. * FNA if 2.5 cm or larger, follow up if 1.5 cm or larger (at 1, 3, and 5 years). TI-RADS 4 (moderately suspicious): 4-6 points. * FNA if 1.5 cm or larger, follow up if 1 cm or larger (at 1, 2, 3, and 5 years). TI-RADS 5 (highly suspicious): 7 points or more. * FNA if 1 cm or larger, follow up if 0.5 cm or larger (every year for 5 years). Dictated by: Fabian Galvez M.D. on 11/20/2023 at 17:43 Approved by: Fabian Galvez M.D. on 11/20/2023 at 17:47
== END ==
LOC: US 15:08
PROVIDERS: PCP Internal Medicine; Referring Provider Physician Assistant; Visit Provider Physician Assistant
DX: E04.2 Nontoxic multinodular goiter (principal)
CPT/HCPCS: 76536

== ENCOUNTER → 2024-02-26 13:28 | Outpatient (CLI) | payer OTHER, SELFPAY ==
--- NOTE | 2024-02-26 13:30 | DI.MG.S_ITS ---
BILATERAL DIGITAL DIAGNOSTIC MAMMOGRAM 3D/2D WITH AUGMENTATION: 02/26/2024 CLINICAL: Intermittent pain in bilateral breasts. Comparison is made to exams dated: 07/23/2023 mammogram, 06/26/2022 mammogram, and 06/20/2021 mammogram - [facility]. Both breasts are extremely dense, which lowers the sensitivity of mammography (category d />75% glandular tissue). Bilateral subpectoral saline implants are stable. No significant masses, calcifications, or other findings are seen in either breast. Specifically, no finding to explain the patient's pain. IMPRESSION: BENIGN There is no mammographic change, no explanation for bilateral diffuse inferior breast pain, and no evidence of malignancy. Return to annual mammogram screening schedule is recommended. Findings and recommendations were conveyed to the patient at time of exam. Based on the Tyrer Cuzick model (a risk assessment model) the patient's lifetime risk is 16.6% and her 10 year risk is 6.3%. According to the ACR, ACS, and NCCN guidelines, an annual breast MRI exam along with mammogram is recommended if the patient's lifetime risk is 20% or greater. This exam was interpreted at Station ID: [id number]. NOTE: For mammograms, a report in lay terms will be sent to the patient. Approximately 15% of breast malignancies will not be visualized mammographically. In the management of a palpable breast mass, a negative mammogram must not discourage biopsy of a clinically suspicious lesion. Electronically Signed By: Maragret warren/:02/26/2024 14:15:00 Entry: - 02/27/2024 14:46:04 letter sent: Normal Exam ACR BI-RADS Category 2: Benign Finding(s) 3342F
== END ==
PROVIDERS: PCP Physician Assistant; Referring Provider Surgery; Visit Provider Surgery
DX: N64.4 Mastodynia (principal); R92.343 Mammographic extreme density, bilateral breasts; Z98.82 Breast implant status
CPT/HCPCS: 77066; G0279

== ENCOUNTER → 2024-03-09 | Outpatient (CLI) | payer OTHER, SELFPAY ==
--- NOTE | 2024-03-09 16:06 | DI.MRI.S_ITS ---
Patient Name: ANIA PARADA date: 1965 Sex: F Attending Physician: Rodriguez Indications: Date: 03/11/2024 07:37 At the request of: IVETTE LEES Procedure: MR breast BI wo/w con BREAST MRI OF BOTH BREASTS: 03/09/2024 CLINICAL: Mastodynia. Comparison is made to exams dated: 02/26/2024 mammogram, 07/23/2023 mammogram, and 06/26/2022 mammogram - [facility]. PROCEDURE: MR BREAST BI WO/W CON INDICATIONS: mastodynia TECHNIQUE: The patient was placed prone in a dedicated breast imaging coil. Precontrast axial STIR and 3D FLASH without fat saturation sequences were obtained. Both before and after bolus injection of contrast, sequential 1-minute axial 3D FLASH with fat saturation sequences for 3 time points, with subtraction images and maximum intensity projections (MIP's) generated. Delayed sagittal FLASH images with fat saturation were also obtained. FINDINGS: Image quality: Diagnostic. The breasts are extremely dense. There is moderate background parenchymal enhancement Right breast: No suspicious mass, non-mass enhancement, or focus. Left breast: No suspicious mass, non-mass enhancement, or focus. Continued Report - Page 2 of 3 Patient Name: ANIA PARADA date: 1965 Sex: F Attending Physician: Rodriguez Indications: Date: 03/11/2024 07:37 At the request of: IVETTE LEES Procedure: MR breast BI wo/w con Miscellaneous: Bilateral saline implants are present appear intact. The partially visualized anterior mediastinum and upper abdomen are unremarkable. There is possible borderline cardiomegaly. No pathologic lymph nodes identified by size criteria within the field of view. Computer-aided detection, including computer algorithm analysis of MRI image data for lesion detection and characterization, pharmacokinetic analysis, with further physician review for interpretation, was performed. IMPRESSION: BENIGN No suspicious findings in either breast. No explanation identified for diffuse breast pain. Clinical evaluation is recommended. Incidentally noted possible borderline cardiomegaly. No pathologic lymph nodes by size criteria within the field of view Bilateral saline implants are present, intact. BIRADS 2 COMMENT: The imaging literature indicates that a negative contrast breast MRI examination has a high sensitivity and a moderate specificity for detecting and excluding invasive carcinomas to a detection threshold of 3-5 mm; nonetheless, appropriate clinical and mammographic follow- up are recommended. MRI is not sensitive for detecting DCIS (ductal carcinoma in situ) and may not detect large invasive neoplasms that show only minimal enhancement such as mucinous carcinoma. If there are suspicious calcifications or clinically worrisome palpable masses, then biopsy should still be considered. Invasive neoplasms can be hidden by co-existent and benign enhancement caused by mastitis, hormone therapy effects, radiation therapy, , and recent biopsy or surgery. False positive examinations can occur in a number of circumstances, including breasts that have recently been subject to invasive procedures and those that contain atypical ductal hyperplasia, hormonally stimulated glandular tissue, fat necrosis, or radial scars. This exam was interpreted at Station ID: [id number]. Continued Report - Page 3 of 3 Patient Name: ANIA PARADA date: 1965 Sex: F Attending Physician: Rodriguez Indications: Date: 03/11/2024 07:37 At the request of: IVETTE LEES Procedure: MR breast BI wo/w con Electronically Signed By: Salty Jones M.D. /:03/11/2024 07:37:00 Entry: - 03/11/2024 13:08:14 letter sent: Clinical Evaluation ACR BI-RADS Category 2: Benign Finding(s) 3342F
== END ==
PROVIDERS: PCP Physician Assistant; Referring Provider Surgery; Visit Provider Surgery
DX: N64.4 Mastodynia (principal); R92.343 Mammographic extreme density, bilateral breasts; Z98.82 Breast implant status
CPT/HCPCS: 77049; A9579

== ENCOUNTER → 2024-07-15 08:52 | Outpatient (CLI) | payer BC, SELFPAY ==
[2024-07-15 10:12] LABS: Add Manual Diff / Slide Review NO; Basophils Absolute Auto 0 /uL (0-100); Basophils Percent Auto 0.9 % (0-2); Eosinophils Absolute Auto 0 /uL (0-450); Eosinophils Percent Auto 0.5 % (2-4); Hematocrit 42.4 % (36-46); Hemoglobin 14.3 g/dL (12.0-16.0); Lymphocytes Absolute Auto 2000 /uL (1100-4500); Lymphocytes Percent Auto 36.9 % (25-40); Mean Corpuscular HGB Conc 33.8 % (30-36); Mean Corpuscular Hemoglobin 30.3 PG (26-34); Mean Corpuscular Volume 89.7 fL (80-100); Monocytes Absolute Auto 300 /uL (0-900); Monocytes Percent Auto 5.2 % (3-14); Neutrophils Absolute Auto 3100 /uL (1500-7000); Neutrophils Percent Auto 56.5 % (50-75); Platelet Count 268 X10^3/uL (150-400); Red Blood Cell Count 4.73 X10^6/uL (4.0-5.2); Red Cell Distribution Width 12.5 % (11.6-14.8); White Blood Cell Count 5.5 X10^3/uL (4.5-11.0)
[2024-07-15 10:35] LABS: Alanine Aminotransferase 21 IU/L (<35); Albumin Globulin Ratio 1.5 (1.0-2.8); Alkaline Phosphatase 39 U/L (38-126); Aspartate Aminotransferase 24 IU/L (14-36); BUN Creatinine Ratio 25.6 (6-22); Bilirubin Total 0.4 mg/dL (0.2-1.3); Blood Urea Nitrogen 20 mg/dL (7-17); Calcium 9.3 mg/dL (8.4-10.2); Carbon Dioxide 30 mmol/L (22-32); Chloride 101 mmol/L (98-107); Estimated Glomerular Filt Rate > 60 mL/min (>60); Globulin 2.7 g/dL (1.7-4.1); Glucose 96 mg/dL (70-100); HEMOLYSIS < 15 (0-50); Potassium 4.2 mmol/L (3.4-5.1); Sodium 138 mmol/L (137-145); Total Protein 6.7 g/dL (6.3-8.2)
[2024-07-15 10:52] LABS: Free T3, Triiodothyronine Free 3.49 pg/mL (2.77-5.27)
[2024-07-15 11:06] LABS: TSH w/ Reflex to FT4 1.04 uIU/mL (0.47-4.68)
== END ==
PROVIDERS: PCP Family Medicine; Referring Provider Family Medicine; Visit Provider Family Medicine
DX: R00.2 Palpitations (principal); E04.1 Nontoxic single thyroid nodule; R63.2 Polyphagia; Z86.39 Personal history of other endocrine, nutritional and metabolic disease
CPT/HCPCS: 36415; 80053; 84443; 84481; 85025

== ENCOUNTER 2024-09-28 07:55 | Day surgery (SDC) | payer OTHER, SELFPAY ==
--- NOTE | 2024-09-28 | PATH_ITS ---
[facility] Accession Number: [id number] No. of containers..01 Tissue . 01 Material submitted: . colon - ASCENDING POLYP . 01 Diagnosis: ASCENDING COLON POLYP: Colonic mucosa with no evidence of neoplasm, consistent with polypoid redundancy. Negative for serrated lesion, dysplasia, or malignancy. GREGORIO 10/01/2024 1142 Local . 01 Electronically signed: . Evangelist Doyle MD, PhD, Pathologist NPI- [id number] . 01 Gross description: . Received in formalin with two patient identifiers and ascending colon polyp, is a single berman-brown soft tissue fragment 1.1 cm in greatest dimension. Submitted in cassette A1. ([id number]) /GREGORIO 09/30/2024 1026 Local . 01 Pathologist provided ICD-10: K63.5 . 01 CPT . 774245 Specimen Comment: A courtesy copy of this report has been sent to [phone] Performed at: [address] [facility] [address], [place], [place] [id number] MD Jose Manuel Rojas MD Phone: [phone]
[2024-09-28 08:41] VITALS: BP 116/76; PULSE 73; RESP 16; TEMP 36.2; O2SAT 97
--- NOTE | 2024-09-28 08:51 | P.HP_ITS ---
History of Present Illness History of Present Illness Date Patient Seen: 09/28/24 Time Patient Seen: 08:51 Chief complaint: Screening Colonoscopy Narrative: Darleen is a 59 year old woman here for colonoscopy. Her last one was about 5 years ago and she had some tubular adenomas removed. No family history of colon cancer. [facility] Medical History (Updated 09/28/24 @ 08:52 by Satinder Frias MD) UTI (urinary tract infection) Incontinence without sensory awareness Secondhand smoke exposure History of urinary tract infection Feeling of incomplete bladder emptying Asymptomatic microscopic hematuria Gross hematuria History of anxiety History of major depression Hx of Iliana thyroiditis History of hypothyroidism Left knee pain Fatigue Hypercholesterolemia (Unknown) Depression (Unknown) H/O tinnitus (Unknown) HPV in female (2000) Herpes (2000) Fibroids (Unknown) Endometriosis (Unknown) Anxiety (1999) Insomnia (Unknown) History of subacute thyroiditis (05/27/16) Pure hypercholesterolemia (02/02/16) Primary insomnia (09/25/15) Anxiety (09/25/15) Surgical History Status post hysterectomy Family History Father Age: 87 Hypertension Mother Age: 85 Hypertension Hyperlipidemia Social History marital status: number of children: 0 occupational status: employed Smoking Status: Never smoker alcohol intake: current caffeine: Yes Type(s) of exercise: none Meds Home Medications and Allergies Home Medications Medication Instructions Recorded Confirmed Type acyclovir 400 mg tablet 400 mg PO DAILY 07/25/21 09/28/24 History trazodone 150 mg tablet 150 mg PO DAILY 07/25/21 09/28/24 History rosuvastatin 10 mg tablet 10 mg PO DAILY 02/11/23 09/28/24 History citalopram 30 mg capsule 20 mg PO DAILY 06/03/23 09/28/24 History biest 60-40/prog e4m 4/100mg 1 cap PO QDAY #90 caps 05/07/24 09/28/24 Rx testosterone vbase 1.6% 0.25 g topical .qday #1 tube 05/18/24 09/28/24 Rx temazepam 30 mg capsule 30 mg PO BEDTIME PRN sleep #30 caps 07/15/24 09/28/24 Rx Allergies Allergy/AdvReac Type Severity Reaction Status Date / Time No Known Drug Allergies Allergy Verified 07/15/24 08:32 Exam Vital Signs (past 8 hours): - 09/28/24 08:41 Temperature 97.2 F L Pulse Rate 73 Respiratory Rate 16 Blood Pressure 116/76 Pulse Oximetry 97 Oxygen Delivery Method Room Air Oxygen Delivery Method Room Air Const General: No acute distress Resp Effort & Inspection: normal respiratory effort Assessment & Plan Assessment and plan (1) History of colon polyps: Status: Acute Plan Colonoscopy Time-Based Coding :: [TOTAL MINUTES] spent with patient and on the chart (including review of chart, obtaining history, exam, reviewing outside data, placing orders, documenting exam and treatment plan, and counseling patient) on [DATE].
[2024-09-28 10:00] VITALS: BP 103/58; PULSE 87; RESP 14; TEMP 36.4; O2SAT 97
--- NOTE | 2024-09-28 10:00 | PM.OP.COLON ---
Operative Date/Time/Diagnoses Date of procedure: 09/28/24 Time of procedure: 10:00 Pre-op diagnosis: History of colon polyps Post-op diagnosis: same Procedure & Clinicians Study performed: Colonoscopy Same procedure as scheduled: Yes Surgeon: Satinder Frias Procedure Notes Procedure in detail: Surgeon: Satinder Frias MD Anesthesia: Shantel Barreto CRNA Procedure: The patient was brought to the endoscopy suite, placed in left lateral decubitus position. The patient was connected to monitoring devices. A time-out was performed. Sedation was administered. Once the patient was adequately sedated, a digital rectal exam was performed and was normal. The scope was then inserted and advanced to the cecum where the appendiceal orifice was identified and photographed. The scope was then slowly withdrawn over greater than 6 minutes. The mucosa was thoroughly inspected. There was a 3 mm polyp in the ascending colon removed with a cold snare. The scope was retroflexed in the rectum. The scope was straightened and removed. The patient was awakened and brought to recovery. Scope withdrawal time: 6 minutes Sedation time: 10 minute EBL: 2 mL Findings: 3 mm ascending colon polyp Post-procedure Disposition: PACU
[2024-09-28 10:05] VITALS: BP 110/58; PULSE 81; RESP 15; O2SAT 97
[2024-09-28 10:10] VITALS: BP 119/75; PULSE 77; RESP 14; O2SAT 98
[2024-09-28 10:15] VITALS: BP 132/73; PULSE 75; RESP 17; TEMP 36.1; O2SAT 99
== END 2024-09-28 10:39 | disposition home or self-care (01) ==
PROVIDERS: PCP Family Medicine; Referring Provider Surgery; Visit Provider Surgery
PROC: 0DJD8ZZ Inspection of Lower Intestinal Tract, Via Natural or Artificial Opening Endoscopic (ICD-10-PCS; CPT 45378; principal; 2024-09-28 09:15)
DX: Z12.11 Encounter for screening for malignant neoplasm of colon (principal); Z86.0100 Personal history of colon polyps, unspecified; K63.5 Polyp of colon
CPT/HCPCS: 45385; J2405; J2704

== ENCOUNTER → 2024-12-22 09:34 | Outpatient (CLI) | payer OTHER, SELFPAY ==
[2024-12-22 10:32] LABS: Influenza A - CEPHEID Flu A NEGATIVE (NEGATIVE); Influenza B - CEPHEID Flu B NEGATIVE (NEGATIVE); Respiratory Syncytial Virus Negative (Negative)
[2024-12-22 10:33] LABS: COVID-19 CEPHEID 4-PLEX PCR Negative (Negative)
== END ==
PROVIDERS: PCP Family Medicine; Visit Provider Physician Assistant
DX: J02.9 Acute pharyngitis, unspecified (principal); R05.1 Acute cough
CPT/HCPCS: 0241U; 87070

== ENCOUNTER → 2024-12-22 10:00 | Outpatient (CLI) | payer OTHER, SELFPAY ==
[2024-12-22 10:43] LABS: Add Manual Diff / Slide Review NO; Basophils Absolute Auto 0 /uL (0-100); Basophils Percent Auto 0.8 % (0-2); Eosinophils Absolute Auto 100 /uL (0-450); Eosinophils Percent Auto 1.7 % (2-4); Hematocrit 41.9 % (36-46); Hemoglobin 13.9 g/dL (12.0-16.0); Lymphocytes Absolute Auto 1800 /uL (1100-4500); Lymphocytes Percent Auto 35.9 % (25-40); Mean Corpuscular HGB Conc 33.2 % (30-36); Mean Corpuscular Hemoglobin 30.2 PG (26-34); Mean Corpuscular Volume 90.9 fL (80-100); Monocytes Absolute Auto 300 /uL (0-900); Monocytes Percent Auto 5.4 % (3-14); Neutrophils Absolute Auto 2900 /uL (1500-7000); Neutrophils Percent Auto 56.2 % (50-75); Platelet Count 266 X10^3/uL (150-400); Red Cell Distribution Width 12.2 % (11.6-14.8); White Blood Cell Count 5.1 X10^3/uL (4.5-11.0)
[2024-12-22 10:58] LABS: Alanine Aminotransferase 30 IU/L (<35); Albumin 4.4 g/dL (3.5-5.0); Albumin Globulin Ratio 1.7 (1.0-2.8); Alkaline Phosphatase 47 U/L (38-126); Aspartate Aminotransferase 31 IU/L (14-36); BUN Creatinine Ratio 23.4 (6-22); Bilirubin Total 0.4 mg/dL (0.2-1.3); Blood Urea Nitrogen 18 mg/dL (7-17); Calcium 9.4 mg/dL (8.4-10.2); Carbon Dioxide 26 mmol/L (22-32); Chloride 102 mmol/L (98-107); Estimated Glomerular Filt Rate > 60 mL/min (>60); Globulin 2.6 g/dL (1.7-4.1); Glucose 102 mg/dL (70-100); HEMOLYSIS < 15 (0-50); Potassium 4.5 mmol/L (3.4-5.1); Sodium 138 mmol/L (137-145)
[2024-12-22 11:04] LABS: Rheumatoid Factor < 8.6 IU/mL (<12.0)
[2024-12-22 11:28] LABS: TSH w/ Reflex to FT4 0.91 uIU/mL (0.47-4.68)
[2024-12-22 11:48] LABS: Erythrocyte Sedimentation Rate 13 MM/HR (0-20)
== END ==
LOC: LAB 10:01
PROVIDERS: PCP Family Medicine; Referring Provider Physician Assistant; Visit Provider Physician Assistant
DX: R53.83 Other fatigue (principal); M25.50 Pain in unspecified joint
CPT/HCPCS: 0241U; 36415; 80053; 84443; 85025; 85651; 86200; 86430; 87070

== ENCOUNTER → 2024-12-28 16:05 | Outpatient (CLI) | payer OTHER, SELFPAY ==
[2024-12-28 17:06] LABS: Monotest Negative (Negative)
== END ==
PROVIDERS: PCP Family Medicine; Referring Provider Physician Assistant; Visit Provider Physician Assistant
DX: G93.31 Postviral fatigue syndrome (principal)
CPT/HCPCS: 36415; 86318

== ENCOUNTER → 2025-04-07 13:06 | Outpatient (CLI) | payer OTHER, SELFPAY ==
--- NOTE | 2025-04-07 13:09 | DI.RAD.S_ITS ---
PROCEDURE: XR ABDOMEN MIN 2V INDICATIONS: FB swallowed gold tooth crown TECHNIQUE: 2 views of the abdomen were acquired. COMPARISON: None. FINDINGS: Surgical changes and devices: Metallic density is seen projecting in right lower pelvis. Bowel: No pneumoperitoneum. The bowel gas pattern is nonobstructive. Moderate fecal stasis in the colon is seen. Soft tissues: No masses; visualized solid organ contours appear normal in size. No suspicious abdominal calcifications. Bones: No suspicious bony abnormalities. IMPRESSION: Metallic density in right lower pelvis. Moderate constipation. No gross free air. Dictated by: Ben Jacobo M.D. on 04/07/2025 at 14:02 Approved by: Ben Jacobo M.D. on 04/07/2025 at 14:03
== END ==
PROVIDERS: PCP Family Medicine; Referring Provider Family Medicine; Visit Provider Family Medicine
DX: T18.8XXA Foreign body in other parts of alimentary tract, initial encounter (principal); K59.00 Constipation, unspecified
CPT/HCPCS: 74019

== ENCOUNTER → 2025-04-12 11:09 | Outpatient (CLI) | payer OTHER, SELFPAY ==
--- NOTE | 2025-04-12 11:12 | DI.RAD.S_ITS ---
PROCEDURE: XR ABDOMEN MIN 2V INDICATIONS: Solid foreign body, confirmation of its continue to presence TECHNIQUE: 2 views of the abdomen were acquired. COMPARISON: [facility], CR, XR ABDOMEN MIN 2V, 04/07/2025, 13:07. FINDINGS: Stool gas pattern: 1.6 cm rounded metallic foreign body overlies the right lower quadrant. There is migrated 2 cm superior laterally since comparison exam 5 days ago. No evidence of ileus or obstruction. No free intraperitoneal or extraperitoneal air. No gross evidence of ascites Soft tissues: No abnormal calcifications. No soft tissue masses. Organs: No gross evidence for organomegaly. IMPRESSION: 1.6 cm rounded metallic foreign body in the right lower quadrant showing 2 cm distal migration since comparison exam less than 1 week ago. It could potentially be lodged at the ileocecal valve. It does not cause bowel obstruction. If precise location is required , suggest abdomen and pelvic CT with water enteric contrast. The water enteric contrast load could also potentially push it passed the ileocecal valve . Alternatively, one could simply give excessive hyperosmolar agent such as Metamucil to aid passage. Look for foreign body in stool Dictated by: Immanuel Frazier M.D. on 04/13/2025 at 11:19 Approved by: Immanuel Frazier M.D. on 04/13/2025 at 11:23
== END ==
PROVIDERS: PCP Family Medicine; Referring Provider Family Medicine; Visit Provider Family Medicine
DX: T18.9XXD Foreign body of alimentary tract, part unspecified, subsequent encounter (principal)
CPT/HCPCS: 74019

== ENCOUNTER → 2025-04-18 07:31 | Outpatient (CLI) | payer OTHER, SELFPAY ==
--- NOTE | 2025-04-18 07:33 | DI.RAD.S_ITS ---
PROCEDURE: XR ABDOMEN MIN 2V INDICATIONS: Evaluate passage of gold crown TECHNIQUE: 2 views of the abdomen were acquired. COMPARISON: [facility], CR, XR ABDOMEN MIN 2V, 04/12/2025, 11:12. FINDINGS / IMPRESSION: Again noted is the approximately 1.6 cm high attenuation gold crown right lower quadrant which is relatively unchanged in position compared to the prior exam. A few mildly dilated small bowel segments with air-fluid levels are noted which may related ileus/bowel stasis although partial obstruction not excluded. CT may be useful for further evaluation. No free gas. Remainder of the exam unchanged. Dictated by: Benito Zarate M.D. on 04/18/2025 at 9:01 Approved by: Benito Zarate M.D. on 04/18/2025 at 9:07
== END ==
PROVIDERS: PCP Family Medicine; Referring Provider Family Medicine; Visit Provider Family Medicine
DX: T18.9XXD Foreign body of alimentary tract, part unspecified, subsequent encounter (principal)
CPT/HCPCS: 74019

== ENCOUNTER → 2025-04-25 10:46 | Outpatient (CLI) | payer OTHER, SELFPAY ==
--- NOTE | 2025-04-25 10:47 | DI.CT.S_ITS ---
PROCEDURE: CT ABDOMEN PELVIS W CON INDICATIONS: 1.6 cm rounded metallic foreign body in the right lower quad TECHNIQUE: After the administration of intravenous contrast, axial sections acquired from the lung bases to the pubic symphysis. Coronal and sagittal reformats were performed. For radiation dose reduction, the following was used: automated exposure control, adjustment of mA and/or kV according to patient size. COMPARISON: [facility], CR, XR ABDOMEN MIN 2V, 04/18/2025, 7:33. [facility], CT, CT ABDOMEN PELVIS WO/W CON, 02/25/2023, 11:33. FINDINGS: Image quality: Diagnostic. Lower Chest: Partially imaged inferior margin of the bilateral breast implants. Bibasilar atelectasis. ABDOMEN: Liver: No solid mass. There is diffuse hypoattenuation of the liver parenchyma relative to the spleen compatible with hepatic steatosis. Gallbladder: No radiopaque gallstones or wall thickening. Biliary ducts: No biliary dilation. Pancreas: Homogeneous enhancement without focal lesions or pancreatic ductal dilatation. No peripancreatic inflammation or organized fluid collections. Spleen: Size is within normal limits. Adrenal Glands: No adrenal nodules. Kidneys and Ureters: No hydronephrosis. No solid mass. No complex renal cystic lesion which requires follow up. Stomach and Bowel: Normal colonic caliber, without significant wall thickening. Moderate fecal burden seen throughout the colon. No evidence for small bowel obstruction or associated inflammatory changes. The appendix is not definitively visualized. However, no secondary findings of acute inflammation are noted in the right lower quadrant. Redemonstration of metallic foreign body within the bowel in the right lower quadrant. This is beyond the ileocecal valve and likely within the dependent portions of the cecum. Peritoneum: No abnormal intraperitoneal fluid. No free air. Ventral Wall: There is a fat-containing umbilical hernia without acute inflammation. Abdominal Nodes: No retroperitoneal or mesenteric adenopathy by size criteria. Vessels: Aorta and inferior vena cava are normal in size. PELVIS: Pelvic Organs: Unremarkable. Bladder: No bladder wall thickening, accounting for underdistention. Pelvic Nodes: No enlarged lymph nodes. Miscellaneous: No inguinal hernias are seen. Bones: No aggressive osseous abnormality. Visualized osseous structures appear intact without acute fracture or focal destructive lesion. No acute compression fractures of the imaged spine. IMPRESSION: 1. Metallic foreign body in the right lower quadrant of the abdomen correlates with ingested gold crown of patient's tooth. It appears to be within the lumen of the dependent portions of the cecum. There is no evidence for bowel obstruction. No acute inflammatory changes 2. Other chronic/non-acute findings as above. Dictated by: Sandeep Bacon M.D. on 04/25/2025 at 14:30 Approved by: Sandeep Bacon M.D. on 04/25/2025 at 14:37
== END ==
PROVIDERS: PCP Family Medicine; Referring Provider Family Medicine; Visit Provider Family Medicine
DX: T18.9XXD Foreign body of alimentary tract, part unspecified, subsequent encounter (principal)
CPT/HCPCS: 74177; Q9967

== ENCOUNTER → 2025-04-29 16:02 | Outpatient (CLI) | payer OTHER, SELFPAY ==
--- NOTE | 2025-04-29 16:03 | DI.RAD.S_ITS ---
PROCEDURE: XR KUB INDICATIONS: Foreign body TECHNIQUE: One view of the abdomen acquired. COMPARISON: None. FINDINGS: Surgical changes and devices: None. Bowel: Bowel gas pattern is normal. Soft tissues: No suspicious abdominal calcifications. Visualized solid organ contours appear normal in size. 1.3 cm metallic density foreign body overlies the right pelvic ring adjacent to the hip joint. Bones: No suspicious bony lesions. IMPRESSION: Metallic density foreign body overlying the right pelvic ring may represent an ingested crown. Dictated by: Leonel Mullins M.D. on 04/30/2025 at 23:44 Approved by: Leonel Mullins M.D. on 04/30/2025 at 23:46
== END ==
PROVIDERS: PCP Family Medicine; Referring Provider Surgery; Visit Provider Surgery
DX: T18.9XXD Foreign body of alimentary tract, part unspecified, subsequent encounter (principal)
CPT/HCPCS: 74018

== ENCOUNTER → 2025-06-23 15:27 | Outpatient (CLI) | payer OTHER, SELFPAY ==
--- NOTE | 2025-06-23 15:28 | DI.MG.S_ITS ---
MM screening mammo implant BI: 06/23/2025. BI-RADS: 2 CLINICAL: 60-year old female for bilateral screening mammogram. Tyrer-Cuzick lifetime risk of 10.6%. No personal or first-degree family history of breast cancer. The patient has bilateral implants. The patient had a prior left breast biopsy. PRIOR EXAMS 03/09/2024, 02/26/2024, 07/23/2023, 06/26/2022. MAMMOGRAPHY TECHNIQUE: 2D and 3D (tomosynthesis) digital mammographic views obtained, with additional images as needed for full coverage. Current study was also evaluated with a Computer Aided Detection (CAD) system. DENSITY C. The breasts are heterogeneously dense, which may obscure small masses. IMPLANTS Breast implants present. MAMMOGRAPHY FINDINGS Bilateral: There are no suspicious masses, calcifications, or other findings in the breast. No significant change from comparison. IMPRESSION: * No evidence of malignancy with benign findings. RECOMMENDATIONS Bilateral * Annual screening mammography. OVERALL ASSESSMENT CATEGORY BI-RADS-2: Benign. The [employer] recommends annual screening mammography beginning at age 40 for women with average risk of breast cancer. ELECTRONICALLY SIGNED: Margaret Vera M.D. on 06/24/2025 at 11:47:34 AM PT Interpreting Station ID: [id number]
== END ==
LOC: MAMMO 15:27
PROVIDERS: PCP Family Medicine; Referring Provider Family Medicine; Visit Provider Family Medicine
DX: Z12.31 Encounter for screening mammogram for malignant neoplasm of breast (principal); R92.333 Mammographic heterogeneous density, bilateral breasts; Z98.82 Breast implant status
CPT/HCPCS: 77063; 77067

== ENCOUNTER → 2025-07-19 14:40 | Outpatient (CLI) | payer OTHER, SELFPAY ==
[2025-07-19 15:55] LABS: Follicle Stimulating Hormone 31.9 mIU/mL; Progesterone, Total 3.95 ng/mL
[2025-07-19 16:41] LABS: Estradiol, Total 20.7 pg/mL
== END ==
PROVIDERS: PCP Family Medicine; Referring Provider Family Medicine; Visit Provider Nurse Practitioner Adult Health
DX: G47.00 Insomnia, unspecified (principal); N95.1 Menopausal and female climacteric states
CPT/HCPCS: 36415; 82397; 82670; 83001; 84144

== ENCOUNTER → 2025-08-10 07:44 | Outpatient (CLI) | payer OTHER, SELFPAY | PROVIDERS: PCP Naturopath; Referring Provider Naturopath; Visit Provider Nurse Practitioner Adult Health | DX: N95.1 Menopausal and female climacteric states (principal) | CPT/HCPCS: 36415; 84402; 84403 ==

== ENCOUNTER → 2025-08-31 15:31 | Outpatient (CLI) | payer OTHER, SELFPAY | PROVIDERS: PCP Naturopath; Visit Provider Nurse Practitioner Family | DX: R30.0 Dysuria (principal) | CPT/HCPCS: 87077; 87086; 87186 ==

== ENCOUNTER → 2025-09-20 07:17 | Outpatient (CLI) | payer OTHER, SELFPAY ==
[2025-09-20 08:12] LABS: Hemoglobin A1C% w Est Avg Glu 5.6 % (4.0-6.0)
[2025-09-20 08:37] LABS: Cholesterol 171 mg/dL (140-199); HDL Cholesterol 67 mg/dL (40-60); Triglycerides 77 mg/dL (35-150)
== END ==
PROVIDERS: PCP Naturopath; Referring Provider Nurse Practitioner Adult Health; Visit Provider Nurse Practitioner Adult Health
DX: E66.09 Other obesity due to excess calories (principal); E66.811 Obesity, class 1; G47.00 Insomnia, unspecified; Z68.30 Body mass index [BMI] 30.0-30.9, adult
CPT/HCPCS: 36415; 80061; 82533; 83036

== ENCOUNTER → 2025-09-27 11:26 | Outpatient (CLI) | payer OTHER, SELFPAY ==
[2025-09-27 11:52] LABS: Add Manual Diff / Slide Review NO; Hematocrit 42.0 % (36-46); Hemoglobin 14.3 g/dL (12.0-16.0); Lymphocytes Absolute Auto 2100 /uL (1100-4500); Mean Corpuscular HGB Conc 34.0 % (30-36); Mean Corpuscular Hemoglobin 30.1 PG (26-34); Mean Corpuscular Volume 88.7 fL (80-100); Platelet Count 252 X10^3/uL (150-400)
[2025-09-27 12:15] LABS: HEMOLYSIS < 15 (0-50); Iron 98 ug/dL (37-170)
[2025-09-27 12:27] LABS: Percent Iron Saturation 38 % (15-50); Total Iron Binding Capacity 260 ug/dL (265-497); Transferrin 228 mg/dL (206-381)
[2025-09-27 12:46] LABS: Ferritin 255 ng/mL (11-264)
== END ==
PROVIDERS: PCP Naturopath; Referring Provider Naturopath; Visit Provider Naturopath
DX: E61.1 Iron deficiency (principal)
CPT/HCPCS: 36415; 82728; 83540; 83550; 85025